=== PATIENT | female | born 1990 | race Caucasian/White ===

== ENCOUNTER 2019-04-26 17:27 | Emergency (ER) | payer MEDICAID ==
[~2019-04-26] VITALS: Ht 149.9 cm; Wt 68.2 kg
[2019-04-26 17:29] VITALS: Ht 149.9 cm; Wt 68.2 kg
[2019-04-26] MEDS ORDERED: SEROQUEL200 MG PO (17:32)
[2019-04-26] MEDS ORDERED: LEVOXYL200 MCG PO (17:32)
[2019-04-26] MEDS ORDERED: HYDROCODON-ACET15 ML PO (17:33)
[2019-04-26] MEDS ORDERED: NEURONTIN800 MG PO (17:33)
[2019-04-26 19:21] LABS: APPEARANCE CLEAR (CLEAR); BILIRUBIN NEGATIVE (NEGATIVE); COLOR YELLOW (YELLOW); GLUCOSE NEGATIVE (NEGATIVE); HCG URINE NEGATIVE (NEGATIVE); KETONE NEGATIVE (NEGATIVE); NITRITE NEGATIVE (NEGATIVE); PROTEIN NEGATIVE (NEGATIVE); UROBILINOGEN NORMAL (NORMAL)
[2019-04-26] MEDS ORDERED: ROBAXIN500 MG PO (20:43)
[2019-04-26] MEDS ORDERED: TORADOL10 MG PO (20:43)
[2019-04-26 21:01] VITALS: BP 141/86
== END 2019-04-26 21:01 | disposition home or self-care (01) ==
LOC: D.ER 17:27
PROVIDERS: Emergency Medicine
DX: S39.012A Strain of muscle, fascia and tendon of lower back, initial encounter (principal); W18.39XA Other fall on same level, initial encounter; M79.18 Myalgia, other site; F17.210 Nicotine dependence, cigarettes, uncomplicated